=== PATIENT | male | born 2000 | race African-American/Black ===

== ENCOUNTER 2020-06-28 23:20 | Emergency (ER) | payer MEDICAID ==
[~2020-06-28] VITALS: Ht 190.5 cm; Wt 92.3 kg
[2020-06-28 23:26] VITALS: BP 135/65
[2020-06-29 02:13] LABS: CLARITY URINE CLEAR (CLEAR); COLOR URINE YELLOW (YELLOW); KETONES URINE NEGATIVE (NEGATIVE); LEUKOCYTE ESTERASE URINE NEGATIVE (NEGATIVE); NITRITE URINE NEGATIVE (NEGATIVE); OCCULT BLOOD URINE NEGATIVE (NEGATIVE); PROTEIN URINE NEGATIVE (NEGATIVE); SPECIFIC GRAVITY URINE 1.028 (1.005-1.030); UROBILINOGEN URINE 0.2 E.U./dL (0.2-1.0)
== END 2020-06-29 01:51 | disposition home or self-care (01) ==
LOC: ER 23:20
DX: N48.1 Balanitis (principal)
CPT/HCPCS: 81003; 99283